=== PATIENT | female | born 1980 | race Caucasian/White ===

== ENCOUNTER 2023-10-30 16:49 | Emergency (ER) | payer OTHER ==
[~2023-10-30] VITALS: Ht 152.4 cm; Wt 64.4 kg
[2023-10-30 17:28] VITALS: BP 142/102; PULSE 89; RESP 18; TEMP 97.3; O2SAT 98
[2023-10-30 19:47] LABS: BASOPHILS % (AUTO) 0.3 % (0.0-2.0); EOSINOPHILS # (AUTO) 0.1 K/uL (0-0.4); EOSINOPHILS % (AUTO) 1.2 % (0.0-4.0); HEMATOCRIT 37.3 % (36-48); HEMOGLOBIN 12.6 g/dL (12.0-16.0); LYMPHOCYTES # (AUTO) 2.7 K/uL (2.5-16.5); LYMPHOCYTES % (AUTO) 25.6 % (20.5-51.1); MEAN CORPUSCULAR HEMOGLOBIN 30 pg (27-31); MEAN CORPUSCULAR HGB CONC 34 g/dL (33-37); MEAN CORPUSCULAR VOLUME 89.6 fL (80-94); MONOCYTES # (AUTO) 0.8 K/uL (0.8-1.0); MONOCYTES % (AUTO) 7.5 % (1.7-9.3); NEUTROPHILS # (AUTO) 6.8 K/uL (1.8-7.7); NEUTROPHILS % (AUTO) 65.4 % (42.2-75.2); PLATELET COUNT (AUTO) 339 K/uL (140-450); RED BLOOD CELL COUNT(AUTO) 4.16 MIL/uL (4.20-5.40); RED CELL DISTRIBUTION WIDTH 12.5 % (11.6-13.7); WHITE BLOOD COUNT (AUTO) 10.4 K/uL (4.8-10.8)
[2023-10-30 19:57] LABS: ANION GAP 10.6 (8-16); CALCIUM 8.3 mg/dL (8.5-10.1); CREATININE 0.6 mg/dL (0.6-1.3); POTASSIUM 3.6 mmol/L (3.5-5.1)
[2023-10-30] MEDS ORDERED: IBUP-2213 PO (20:12)
[2023-10-30 20:30] VITALS: BP 128/76; PULSE 74; RESP 14; O2SAT 98
== END 2023-10-30 20:42 | disposition home or self-care (01) ==
LOC: MED 16:49
DX: N92.0 Excessive and frequent menstruation with regular cycle (principal); E11.9 Type 2 diabetes mellitus without complications; Z90.49 Acquired absence of other specified parts of digestive tract; Z79.899 Other long term (current) drug therapy
CPT/HCPCS: 36415; 76856; 80048; 81025; 82948; 85025; 86886; 86900; 86901; 99284